=== PATIENT | male | born 1950 | race Hispanic/Latino ===

== ENCOUNTER 2023-01-22 11:20 | Day surgery (SDC) | payer OTHER ==
[2023-01-21 13:42] LABS: Absolute Lymphocytes (CBC) 1.7 K/uL (0.7-4.9); Hematocrit 40.3 % (39.6-49.0); Lymphocytes % 32.9 % (15.3-44.8); MCV 90.3 fL (80-100); MPV 7.7 fL (7.6-11.3); RBC Red Blood Cell Count 4.46 M/uL (4.33-5.43)
--- NOTE | 2023-01-21 13:52 | RAD REPORT ---
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 TECHNIQUE: PA and lateral views of the chest were obtained. FINDINGS: The lungs are hyperexpanded compatible with COPD. The heart is upper limit of normal in si ze. No fracture or aggressive bony process. IMPRESSION: COPD without acute process identified. The USPSTF recommends annual screening for lung cancer with low-dose CT (LDCT) in adults aged 50 to 80 years who have a 20 pack-year smoking history and currently smoke or have quit within the past 15 years.
[2023-01-21 16:12] LABS: Protime INR 0.92
[2023-01-22] MEDS ORDERED: NA CHLORIDE 0.9% 500 ML ONE (11:34)
[2023-01-22] MEDS ORDERED: LIDOCAINE 1% 20 ML MDV ONE (11:41)
[2023-01-22] MEDS ORDERED: HEPA 1000U/500MLS 2,000 UNIT/1,000 ML BAG IV ONE (11:41)
[2023-01-22] MEDS ORDERED: MIDAZOLAM HCL 2 MG/2 ML INJ ONE (11:55)
[2023-01-22] MEDS ORDERED: HEPARIN 5000 UNIT/ML 1 ML VIAL ONE (11:55)
[2023-01-22] MEDS ORDERED: VERAPAMIL HCL 10 MG/4 ML VIAL IV ONE (11:55)
[2023-01-22] MEDS ORDERED: FENTANYL CITR 100 MCG/2 ML ONE (11:55)
[2023-01-22] MEDS ORDERED: TICAGRELOR 90 MG TABLET PO ONE (11:56)
[2023-01-22] MEDS ORDERED: HEPARIN 10,000 UNIT/10 ML VIAL IV ONE (11:56)
[2023-01-22] MEDS ORDERED: CLOPIDOGREL 75 MG TABLET ONE (11:56)
[2023-01-22 12:18] VITALS: TEMP 98.3
[2023-01-22 17:09] VITALS: BP 133/69; O2SAT 98
--- NOTE | 2023-01-22 21:24 | OP ---
Date of Procedure: 01/22/2023 Surgeon: EMMY MARTINEZ Procedures Performed: 1.Selective coronary angiogram. 2.Left heart catheterization. 3.PCI of severe proximal LAD stenosis, used 3.0 x 16 mm Synergy drug-eluting stent. Indication: Unstable angina. Access: Right radial artery 6-Senegalese closed with TR band. Complications: None. Estimated Blood Loss: Bleeding less than 20 mL. Anesthesia: Total sedation time was 45 minutes, used fentanyl and Versed. Description Of Procedure: After risks, benefits, and alternatives were explained, the patient agreed to the procedure and signed informed consent. The patient was brought into the cardiac catheterizat ion laboratory and prepped and draped in usual sterile fashion. Then I accessed right radial artery using pediatric micropuncture kit, placed 6-[place] Slender sheath, took a 5-[place]eg[place] Bono 4 catheter o scot J-wire into the aortic root and engaged the left main, took standard views and then engaged the R CA, took standard views and the catheters was pushed over the wire into the LV, measured LVEDP and pu llback did not record any gradient. Then I gave systemic heparin to assure ACT level above 250. The patient was loaded with 600 mg of Plavix and he already received aspirin today and I took a 6-[place] XB 3.5 left guide, over J-wire into the aortic root, engaged left main and took a short Runthrough w cuco and advanced it through the left main and LAD and placed it distally. Subsequently, I used a 3.0 x 12 balloon to re-dilate the lesion. The lesion dilated very well and expanded very well. Then, I took a 3.0 x 16 mm Synergy drug-eluting stent across the area of stenosis to overlap with the mid LA D stent. Stent expanded very well reducing the stenosis from 90% to 0%. The patient tolerated proce dure very well. Final angiogram was satisfactory. Then, we removed the wire and the catheter and sh eath and placed TR band with good hemostasis. Findings: 1.Left main is large and normal. 2.LAD: Proximal 90% stenosis, very hazy area diminishing the blood flow, status post successful PCI as above, resulting in 0% residual stenosis and GINNY-3 flow, the diagonal 1 branch is jailed from th e old procedure and has 60% ostial and still the same and then there is a mid LAD stent that is paten t. Then distal to the stent, mid to distal segment of the LAD, there is a long segment of 40% stenos is. The rest of the LAD is normal. 3.Left circumflex is small with luminal irregularities and mild diffuse disease. 4.RCA: Very large and dominant and no disease. 5.Normal LVEDP at 10 mmHg. Conclusion: 1.Severe proximal left anterior descending stenosis status post excessive fullness. Successful perc utaneous coronary intervention as above. 2.Normal left ventricular end-diastolic pressure. Plan: Aspirin, Plavix, high-dose statin. Follow up with me in the office in 1 week to assess his re sponse to the procedure. SR/MODL Voice ID: [id number] Report ID: [id number]
--- NOTE | 2023-01-25 17:19 | EKG ---
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
== END 2023-01-22 17:38 | disposition home or self-care (01) ==
LOC: PRE 11:20 → CCL 17:38
PROVIDERS: ATTEND Internal Medicine
DX: I25.110 Atherosclerotic heart disease of native coronary artery with unstable angina pectoris (principal); I35.0 Nonrheumatic aortic (valve) stenosis; I65.23 Occlusion and stenosis of bilateral carotid arteries; I10 Essential (primary) hypertension; E78.5 Hyperlipidemia, unspecified; E11.9 Type 2 diabetes mellitus without complications; Z95.5 Presence of coronary angioplasty implant and graft; Z79.82 Long term (current) use of aspirin; Z79.84 Long term (current) use of oral hypoglycemic drugs; Z79.899 Other long term (current) drug therapy; Z82.49 Family history of ischemic heart disease and other diseases of the circulatory system
CPT/HCPCS: 93005; 85025; 80048; 36415; 85610; 82947; 85347 ×2; 85730; 71046; 92928; 93458; 76937; C1893; Q9967; C1725; C1877; J1644; J2001; J2250; J3010; J7040